=== PATIENT | female | born 1965 | race Caucasian/White ===

== ENCOUNTER 2017-06-06 16:04 | Emergency (ER) | payer OTHER ==
[~2017-06-06] VITALS: Ht 154.9 cm; Wt 92.7 kg
[~2017-06-06 16:04] MED LIST: ALPRAZOLAM1 MG PO; ESTRADIOL1 MG PO; FLUTICASONE PRO16 GM BOTH NARES; LOSARTAN POTAS100 MG PO; ZEGERID 20 MG1 EACH PO
[2017-06-06 16:52] LABS: HEMOGLOBIN 13.9 G/DL (11.9-15.5); MCH 29.4 PG (29.0-34.0); MCHC 33.9 G/DL (30.0-36.0); MCV 86.9 FL (83-99); PLATELET COUNT 249 K/uL (156-360); RBC DIS.WIDTH-CV 12.8 % (11.8-14.6); RBC DIS.WIDTH-SD 40.5 % (39-53); RED BLOOD COUNT 4.72 M/uL (3.80-5.20)
[2017-06-06 17:01] LABS: CHLORIDE 105 mEq/L (99-109); POTASSIUM 4.1 mEq/L (3.7-5.4); SODIUM 139 mEq/L (136-147)
[2017-06-06 17:02] LABS: GLUCOSE 99 mg/dL (70-99)
[2017-06-06 17:06] LABS: GFR ESTIMATE (CALCULATED) > 59 mL/min/
[2017-06-06 17:07] LABS: UREA NITROGEN (BUN) 16 mg/dL (9-23)
[2017-06-06 17:13] LABS: TROP-I INTERPRETATION NEGATIVE; TROPONIN-I < 0.01 ng/mL (0.0-0.30)
[2017-06-06 19:29] LABS: TROP-I INTERPRETATION NEGATIVE; TROPONIN-I < 0.01 ng/mL (0.0-0.30)
[2017-06-06] MEDS ORDERED: ZANTAC300 MG PO (19:56)
[2017-06-06 20:44] VITALS: BP 121/67
== END 2017-06-06 20:46 | disposition home or self-care (01) ==
LOC: EME 16:04
PROVIDERS: Physician Assistant
DX: R07.89 Other chest pain (principal); M50.10 Cervical disc disorder with radiculopathy, unspecified cervical region; K44.9 Diaphragmatic hernia without obstruction or gangrene; K21.9 Gastro-esophageal reflux disease without esophagitis; Z87.891 Personal history of nicotine dependence; Z88.2 Allergy status to sulfonamides; Z88.1 Allergy status to other antibiotic agents; Z88.8 Allergy status to other drugs, medicaments and biological substances
CPT/HCPCS: 71020; 80048; 84484; 85027; 93005; 99281; 99284

== ENCOUNTER 2017-08-12 08:02 | Emergency (ER) | payer OTHER ==
[~2017-08-12] VITALS: Ht 154.9 cm; Wt 92.5 kg
[~2017-08-12 08:02] MED LIST changes: +ZANTAC300 MG PO
[2017-08-12 08:28] LABS: APPEARANCE SL.HAZY ((CLEAR)); BILIRUBIN NEGATIVE; BLOOD SMALL; COLOR YELLOW ((YELLOW)); GLUCOSE (STRIP) NEGATIVE; KETONES NEGATIVE; LEUKOCYTES NEGATIVE; NITRITE NEGATIVE; PROTEIN (STRIP) NEGATIVE; SPECIFIC GRAVITY 1.019 (1.000-1.030); UROBILINOGEN 0.2 MG/DL (0.2-1.0)
[2017-08-12 08:36] LABS: BACTERIA RARE /HPF; EPITHELIAL CELLS 1+ /HPF; MUCUS TRACE /LPF; RED BLOOD CELLS 0-5 /HPF (0-5); UCUL ADDED? NO; WHITE BLOOD CELLS 0-5 /HPF (0-5)
[2017-08-12 08:47] LABS: HEMATOCRIT 40.5 % (36.0-46.0); HEMOGLOBIN 14.1 G/DL (11.9-15.5); MCH 30.5 PG (29.0-34.0); MCHC 34.8 G/DL (30.0-36.0); MCV 87.5 FL (83-99); PLATELET COUNT 261 K/uL (156-360); RBC DIS.WIDTH-CV 13.3 % (11.8-14.6); RBC DIS.WIDTH-SD 42.5 % (39-53); RED BLOOD COUNT 4.63 M/uL (3.80-5.20); WHITE BLOOD COUNT 6.2 K/uL (4.1-10.2)
[2017-08-12 09:01] LABS: CHLORIDE 106 mEq/L (99-109); POTASSIUM 4.3 mEq/L (3.7-5.4); SODIUM 141 mEq/L (136-147)
[2017-08-12 09:03] LABS: GLUCOSE 107 mg/dL (70-99); TOTAL PROTEIN 7.2 g/dL (6.4-8.3)
[2017-08-12 09:06] LABS: ALKALINE PHOSPHATASE 129 IU/L (3-129); TOTAL BILIRUBIN 0.3 mg/dL (0.0-1.0)
[2017-08-12 09:07] LABS: CREATININE 0.8 mg/dL (0.6-1.3); GFR ESTIMATE (CALCULATED) > 59 mL/min/
[2017-08-12 09:08] LABS: AST (GOT) 15 IU/L (2-34); UREA NITROGEN (BUN) 14 mg/dL (9-23)
[2017-08-12 09:10] LABS: ALT (GPT) 16 IU/L (3-49)
[2017-08-12 09:16] LABS: QUANTITATIVE HCG < 4.0 MIU/ML
[2017-08-12 09:26] LABS: LIPASE 59 U/L (1.0-51.0)
[2017-08-12] MEDS ORDERED: NORCO 5/3251 TABLET PO (09:28)
[2017-08-12] MEDS ORDERED: PERCOCET 5/31 TABLET PO (11:28)
[2017-08-12 11:37] VITALS: BP 133/86
== END 2017-08-12 11:38 | disposition home or self-care (01) ==
LOC: EME 08:02
DX: N20.1 Calculus of ureter (principal); R31.9 Hematuria, unspecified; K21.9 Gastro-esophageal reflux disease without esophagitis; Z90.710 Acquired absence of both cervix and uterus; Z88.2 Allergy status to sulfonamides; Z88.1 Allergy status to other antibiotic agents; Z88.8 Allergy status to other drugs, medicaments and biological substances
CPT/HCPCS: 74176; 80053; 81003; 83690; 84702; 85027; 99281; 99285; J2270

== ENCOUNTER → 2017-11-19 | Outpatient (CLI) | payer OTHER ==
[~2017-11-19] VITALS: Ht 154.9 cm; Wt 92.1 kg
[~2017-11-19] MED LIST changes: +ALLEGRA ALLERGY60 MG PO; +ESTRACE0.5 MG PO; +LOTEMAX5 ML BOTH EYES; +NORCO 5/3251 TABLET PO; +PERCOCET 5/31 TABLET PO; +VITAMIN B-125000 MC1 PO; +VITAMIN C250 M1 PO; +VITAMIN D31000 UNI2 PO; +XANAX1 MG PO
== END | disposition home or self-care (01) ==
LOC: AMB 10:30
PROC: 0DJD8ZZ Inspection of Lower Intestinal Tract, Via Natural or Artificial Opening Endoscopic (ICD-10-PCS; principal; 2017-11-19)
DX: Z12.11 Encounter for screening for malignant neoplasm of colon (principal); Z86.010 Personal history of colon polyps; I10 Essential (primary) hypertension; K21.9 Gastro-esophageal reflux disease without esophagitis; R94.31 Abnormal electrocardiogram [ECG] [EKG]; Z88.2 Allergy status to sulfonamides; Z88.1 Allergy status to other antibiotic agents; Z91.040 Latex allergy status; Z91.09 Other allergy status, other than to drugs and biological substances
CPT/HCPCS: J2250